=== PATIENT | female | born 1950 | race Caucasian/White ===

== ENCOUNTER 2016-05-12 09:34 | Observation (INO) | payer OTHER, BC ==
[2016-05-12 09:41] VITALS: BMI 36.1
[2016-05-12] MEDS ORDERED: SODIUM CHLORIDE 500 ML IV STA (10:14)
[2016-05-12 10:35] LABS: BASOPHIL 0.4 % (0-2.0); EOSINOPHIL 2.3 % (0-4.5); MCHC 34.4 g/dl (32.0-36.0); MEAN CELL VOLUME 93.1 fl (80-96); MEAN PLT VOLUME 10.3 fl (7.5-11.1); PLATELET COUNT 138 K/MM3 (134-434); RDW 12.9 % (11.6-15.6); WHITE BLOOD COUNT 10.4 K/mm3 (4.0-10.0)
--- NOTE | 2016-05-12 10:35 | PDOC ---
History of Present Illness - General Chief Complaint: Lightheaded Stated Complaint: WEAKNESS Time Seen by Provider: 05/12/16 09:49 History Source: Patient, Family - History of Present Illness Timing/Duration: other (this am) Associated Symptoms: reports: cough, malaise, nausea/vomiting. denies: chest pain, diaphoresis, fever/chills, headaches, shortness of breath, syncope Past History - Past Medical History Allergies/Adverse Reactions: Allergies Allergy/AdvReac Type Severity Reaction Status Date / Time No Known Allergies Allergy Verified 05/12/16 09:41 Home Medications: Ambulatory Orders Aspirin [ASA] 81 mg PO DAILY 01/15/13 Atorvastatin Ca [Lipitor -] 40 mg PO HS 01/15/13 Clopidogrel Bisulfate [Plavix] 75 mg PO DAILY 01/15/13 Enalapril Maleate [Vasotec -] 10 mg PO DAILY 01/15/13 Furosemide [Lasix -] 40 mg PO DAILY 01/15/13 Isosorbide Mononitrate [Imdur] 60 mg PO DAILY 01/15/13 Meloxicam [Mobic] 7.5 mg PO DAILY 01/15/13 Metoprolol Tartrate [Lopressor] 100 mg PO TID 01/15/13 Cardiac Disorders: Yes ([place] X 2) CVA: Yes HTN: Yes Hypercholesterolemia: Yes - Surgical History Cardiac Surgery: Yes ([facility]) - Psycho/Social/Smoking Cessation Hx Anxiety: No Suicidal Ideation: No Smoking Status: No Smoking History: Never smoked Number of Cigarettes Smoked Daily: 0 Hx Alcohol Use: No Drug/Substance Use Hx: No Substance Use Type: None Review of Systems - Review of Systems Constitutional: Yes: Malaise. No: Chills, Fever HEENTM: No: Blurred Vision Respiratory: Yes: Cough. No: Shortness of Breath Cardiac (ROS): No: Chest Pain, Palpitations, Syncope ABD/GI: Yes: Nausea. No: Vomiting Neurological: Yes: Dizziness. No: Headache *Physical Exam - Vital Signs Last Vital Signs Temp Pulse Resp BP Pulse Ox 97.7 F 59 L 18 120/58 99 05/12/16 09:35 05/12/16 10:22 05/12/16 10:22 05/12/16 10:22 05/12/16 10:22 - Physical Exam General Appearance: Yes: Appropriately Dressed. No: Apparent Distress HEENT: positive: Normal Voice Neck: positive: Supple Respiratory/Chest: positive: Lungs Clear, Normal Breath Sounds. negative: Respiratory Distress Cardiovascular: positive: Regular Rate, S1, S2 Integumentary: positive: Dry, Warm Neurologic: positive: Fully Oriented, Alert, Normal Mood/Affect ED Treatment Course - LABORATORY CBC & Chemistry Diagram: 05/12/16 10:15 05/12/16 10:15 - RADIOLOGY Radiology Studies Ordered: Category Date Time Status HEAD CT WITHOUT CONTRAST [CT] Stat CT Scan 05/12/16 10:18 Ordered CHEST X-RAY PORTABLE* [RAD] Stat Radiology 05/12/16 09:53 Ordered Medical Decision Making - Medical Decision Making 05/12/16 10:23 66 yo F, COPD, TIA, CAD, [place], CABG, status post left endarterectomy with known 90 % occlusion to right carotid as per daughter, presents with dizziness and near syncope this a.m. As per daughter, this am patient complained of the room spinning and nausea and appeared to be about to pass out but never lost consciousness as per family. Pt denies headache, visual changes, slurred speech , focal weakness, chest pain or shortness of breath. Pt reports feeling better now. States she currently has a URI, consistent with a cough and runny nose and that prior to sxs this am, pt took 2 different cough medications, a leftover antibiotic and all her a.m. medications and suspects that her symptoms could be from medications. See exam Dizziness/near syncope Possible viral labyrinthitis given recent uri, ? meds ingestion, unlikely TIA or cardiac -CTH -ekg -labs -IVF -reassess and discuss dispo w/ PMD 05/12/16 10:36 05/12/16 12:17 05/12/16 12:17 +influenza on labs. IVF and tamiflu in progress. Pt evaluated by Dr Tovar who noted new TWI in lateral leads. Trop neg. Pt reports no CP or SOB and is stable in ED. Case d/w Dr Kay who wants pt admitted to hospitalist *DC/Admit/Observation/Transfer Diagnosis at time of Disposition: Influenza, Pre-syncope - Discharge Dispostion Condition at time of disposition: Fair Admit: Yes
--- NOTE | 2016-05-12 10:58 | EKG ---
Test Reason : Blood Pressure : / mmHG Vent. Rate : 053 BPM Atrial Rate : 053 BPM P-R Int : 194 ms QRS Dur : 090 ms QT Int : 504 ms P-R-T Axes : 054 001 112 degrees QTc Int : 472 ms SINUS BRADYCARDIA T WAVE ABNORMALITY, CONSIDER LATERAL ISCHEMIA PROLONGED QT ABNORMAL ECG WHEN COMPARED WITH ECG OF 05-APR-2008 04:16, INVERTED T WAVES HAVE REPLACED NONSPECIFIC T WAVE ABNORMALITY IN LATERAL LEADS Confirmed by BERNARD REYES, DEEDEE ([id number]) on 05/12/2016 10:58:23 AM Referred By: Confirmed By:DEEDEE WAGNER MD
[2016-05-12 11:06] LABS: ALBUMIN 3.5 g/dl (3.4-5.0); ANION GAP 8 (8-16); BILIRUBIN,TOTAL 0.6 mg/dL (0.2-1.0); CALCIUM 8.2 mg/dL (8.5-10.1); CO2 25 mmol/L (21-32); CREATININE 1.1 mg/dL (0.55-1.02); GLUCOSE,RANDOM 91 mg/dL (74-106); SGOT/AST 25 U/L (15-37); SGPT/ALT 29 U/L (12-78); TOT PROT 6.9 g/dl (6.4-8.2)
[2016-05-12 11:08] LABS: ALK PHOS 97 U/L (45-117); TROPONIN I < 0.02 ng/ml (0.00-0.05)
[2016-05-12] MEDS ORDERED: OSELTAMIVIR PHOSPHATE 75 MG CAPSULE PO ONE (11:12)
--- NOTE | 2016-05-12 11:20 | CON.CARD ---
Consult Consult Specialty:: Cardiology - History of Present Illness History of Present Illness: 66 yo F, COPD, TIA, CAD, [place], CABG, status post left endarterectomy with known 90 % occlusion to right carotid as per daughter, presents with dizziness and near syncope this a.m. As per daughter, this am patient complained of the room spinning and nausea and appeared to be about to pass out but never lost consciousness as per family. Pt denies headache, visual changes, slurred speech , focal weakness, chest pain or shortness of breath. Pt reports feeling better now. States she currently has a URI, consistent with a cough and runny nose and that prior to sxs this am, pt took 2 different cough medications, a leftover antibiotic and all her a.m. medications and suspects that her symptoms could be from medications. PMH CABG [address] Devin Aguiar ASHD COPD HHD HTN Hyperlipidemia TIA - History Source History Provided By: Patient, Medical Record - Past Medical History Cardio/Vascular: Yes: CAD, HTN, Hyperlipdemia - Alcohol/Substance Use Hx Alcohol Use: No - Smoking History Smoking history: Never smoked Aproximately how many cigarettes per day: 0 Home Medications - Allergies Allergies/Adverse Reactions: Allergies Allergy/AdvReac Type Severity Reaction Status Date / Time No Known Allergies Allergy Verified 05/12/16 09:41 - Home Medications Home Medications: Ambulatory Orders Aspirin [ASA] 81 mg PO DAILY 01/15/13 Atorvastatin Ca [Lipitor -] 40 mg PO HS 01/15/13 Clopidogrel Bisulfate [Plavix] 75 mg PO DAILY 01/15/13 Enalapril Maleate [Vasotec -] 10 mg PO DAILY 01/15/13 Furosemide [Lasix -] 40 mg PO DAILY 01/15/13 Isosorbide Mononitrate [Imdur] 60 mg PO DAILY 01/15/13 Meloxicam [Mobic] 7.5 mg PO DAILY 01/15/13 Metoprolol Tartrate [Lopressor] 100 mg PO TID 01/15/13 Review of Systems - Review of Systems Constitutional: reports: No Symptoms Eyes: reports: No Symptoms HENT: reports: No Symptoms Neck: reports: No Symptoms Cardiovascular: reports: No Symptoms Gastrointestinal: reports: No Symptoms Genitourinary: reports: No Symptoms Breasts: reports: No Symptoms Reported Musculoskeletal: reports: No Symptoms Integumentary: reports: No Symptoms Neurological: reports: No Symptoms Endocrine: reports: No Symptoms Hematology/Lymphatic: reports: No Symptoms Psychiatric: reports: No Symptoms Vital Signs: Vital Signs Temperature 97.7 F 05/12/16 09:35 Pulse Rate 59 L 05/12/16 10:22 Respiratory Rate 18 05/12/16 10:22 Blood Pressure 120/58 05/12/16 10:22 O2 Sat by Pulse Oximetry (%) 98 05/12/16 10:23 Constitutional: Yes: Well Nourished, No Distress, Calm Eyes: Yes: WNL, Conjunctiva Clear, EOM Intact HENT: Yes: WNL, Atraumatic, Normocephalic Neck: Yes: WNL, Supple, Trachea Midline Respiratory: Yes: WNL, Regular, CTA Bilaterally Gastrointestinal: Yes: WNL, Normal Bowel Sounds Renal/: Yes: WNL Cardiovascular: Yes: WNL, Regular Rate and Rhythm Musculoskeletal: Yes: WNL Extremities: Yes: WNL Integumentary: Yes: WNL Neurological: Yes: WNL, Alert, Oriented ...Motor Strength: WNL Psychiatric: Yes: WNL, Alert, Oriented - Other Data Labs, Other Data: CBC, BMP 05/12/16 10:15 Laboratory Tests 05/12/16 05/12/16 10:15 10:15 WBC 10.4 H RBC 3.91 Hgb 12.5 Hct 36.4 MCV 93.1 MCHC 34.4 RDW 12.9 Plt Count 138 MPV 10.3 Neutrophils % 69.0 Lymphocytes % 19.2 Monocytes % 9.1 Eosinophils % 2.3 Basophils % 0.4 Sodium 137 Potassium 4.0 Chloride 104 Carbon Dioxide 25 Anion Gap 8 BUN 23 H Creatinine 1.1 H Creat Clearance w eGFR 49.69 Random Glucose 91 Calcium 8.2 L Total Bilirubin 0.6 AST 25 ALT 29 Alkaline Phosphatase 97 Creatine Kinase 109 Troponin I < 0.02 Total Protein 6.9 Albumin 3.5 Imaging - Results Chest X-ray: Image Reviewed (cm no I/E) EKG: Image Reviewed (sr rep abn lateral ischemia?) Assessment/Plan ashd s/p cabg pad s/p cea htn hld near syncope influenza plan cardiac alaniz stable monitor BP for signs of hypotension adjust bp meds as needed lipid profile and ECHO
[2016-05-12] MEDS ORDERED: OSELTAMIVIR PHOSPHATE 75 MG CAPSULE ONE (11:38)
[2016-05-12] MEDS ORDERED: SODIUM CHLORIDE 1,000 ML IV SCH ×2 (14:15→14:24)
[2016-05-12] MEDS ORDERED: ALBUTEROL SO4 2.5/IPRATROPIUM 0.5 INH SOL 3 ML VIAL.NEB. NEB PRN ×2 (14:18→14:29)
[2016-05-12] MEDS ORDERED: ALBUTEROL SO4 0.083% IH SOL 2.5 MG/3 ML VIAL.NEB. NEB PRN (14:18)
--- NOTE | 2016-05-12 14:22 | PN ---
Teaching Attending Note Name of Resident: Hero Mayfield ATTENDING PHYSICIAN STATEMENT I saw and evaluated the patient. I reviewed the resident's note and discussed the case with the resident. I agree with the resident's findings and plan as documented. SUBJECTIVE: This is a 66-year-old woman with a history of CAD, stents, CABG, HTN , hyperlipidemia, carotid stenosis, left carotid endarterectomy, COPD and TIA who comes to the ER today after two episodes of feeling as if she were going to pass out. She has had nasal congestion and a cough for 5 days. OBJECTIVE: Vital Signs Period Temp Pulse Resp BP Sys/Stephens Pulse Ox Last 24 Hr 97.7 F 57-60 18-20 104-130/45-60 98-99 HEART: S1 S2, RRR, (+) 2/6 systolic murmur LUNGS: Scattered crackles and wheezes ABDOMEN: Obese, soft, non-tender, non-distended, normal BS EXTREMITIES: No edema Medication Instructions Recorded Aspirin [ASA] 81 mg PO DAILY 01/15/13 Atorvastatin Ca [Lipitor -] 40 mg PO HS 01/15/13 Clopidogrel Bisulfate [Plavix] 75 mg PO DAILY 01/15/13 Enalapril Maleate [Vasotec -] 10 mg PO DAILY 01/15/13 Furosemide [Lasix -] 40 mg PO DAILY 01/15/13 Isosorbide Mononitrate [Imdur] 60 mg PO DAILY 01/15/13 Meloxicam [Mobic] 7.5 mg PO DAILY 01/15/13 Metoprolol Tartrate [Lopressor] 100 mg PO TID 01/15/13 ASSESSMENT AND PLAN: 1. Near syncope likely secondary to dehydration from influenza A and poor oral intake - IV fluid - Monitor BUN, creatinine - Tamiflu started in ER 2. Abnormal EKG - Monitor on telemetry - Serial troponins - Echocardiogram - Cardiology consult appreciated 3. CAD, history of stents, CABG - Continue aspirin, Plavix, Lopressor, Imdur, Lipitor 4. Hypertension - Continue Lopressor, Vasotec 5. Hyperlipidemia - Continue Lipitor 6. Bilateral carotid stenosis, history of TIA and left carotid endarterectomy - Continue aspirin 7. COPD - Stable - DuoNeb as needed
--- NOTE | 2016-05-12 14:29 | HP ---
CHIEF COMPLAINT: dizziness PCP: Dr. Patrick Kay HISTORY OF PRESENT ILLNESS: 66 y/o F with PMH of COPD, TIA, CAD, [place] X 2, CABG, s/p left endarterectomy with known 90% occlusion to right carotid as per daughter, presents with dizziness and near syncope this a.m. Pt woke up this morning, took her morning medcations , but did not eat or drink because she hasn't been feeling well since Tuesday. She has felt sick with a runny nose, cough, sore throat since Tuesday. Yesterday night she had fevers, chills overnight. This morning pt was sitting down and began slouching as per daughter. Pt states at this time she felt as though sounds became distant and she became dizzy and nasueous. She denies fall , LOC, or vomiting. She states the episode last about 10 minutes and began feeling better when her daughter placed a cold towel on her face. As per breezy the pt was incoherent as she was recovering during this episode. She states she had an episode similar to this 4 months ago. She currently feels like she does not have dizziness but still has runny nose and sore throat. She states she has sick contacts at home as her whole family has been sick recently. She denies recent travel history, denies CP, SOB, palpitations, pain or numbness in arms, ringing in ears, diplopia, abd pain, swelling, or any GI or symptoms. Did not get flu shot this year. ER course was notable for: (1) Rapid flu, EKG, Head CT (2) CXR, ECHO (3) Recent Travel:denies PAST MEDICAL HISTORY: COPD, TIA, CAD, [place] X 2, CABG PAST SURGICAL HISTORY:left endarterectomy, multiple stent placement Social History: Smoking: quit approximately 15 years ago. Smoked 1ppd for approx 30 years Drugs: denies Family History: Allergies No Known Allergies Allergy (Verified 05/12/16 09:41) HOME MEDICATIONS: Medication Instructions Recorded Aspirin [ASA] 81 mg PO DAILY 01/15/13 Atorvastatin Ca [Lipitor -] 40 mg PO HS 01/15/13 Clopidogrel Bisulfate [Plavix] 75 mg PO DAILY 01/15/13 Enalapril Maleate [Vasotec -] 10 mg PO DAILY 01/15/13 Furosemide [Lasix -] 40 mg PO DAILY 01/15/13 Isosorbide Mononitrate [Imdur] 60 mg PO DAILY 01/15/13 Meloxicam [Mobic] 7.5 mg PO DAILY 01/15/13 Metoprolol Tartrate [Lopressor] 100 mg PO TID 01/15/13 REVIEW OF SYSTEMS CONSTITUTIONAL: Absent: fever, chills, diaphoresis, generalized weakness, malaise, loss of appetite, weight change HEENT: Nasal congestion, throat pain Absent: throat swelling, difficulty swallowing, mouth swelling, ear pain, eye pain, visual changes CARDIOVASCULAR: Absent: chest pain, syncope, palpitations, irregular heart rate, lightheadedness , peripheral edema RESPIRATORY: Absent: cough, shortness of breath, dyspnea with exertion, orthopnea, wheezing, stridor, hemoptysis GASTROINTESTINAL: Absent: abdominal pain, abdominal distension, nausea, vomiting, diarrhea, constipation, melena, hematochezia GENITOURINARY: Absent: dysuria, frequency, urgency, hesitancy, hematuria, flank pain, genital pain MUSCULOSKELETAL: Absent: myalgia, arthralgia, joint swelling, back pain, neck pain SKIN: Absent: rash, itching, pallor HEMATOLOGIC/IMMUNOLOGIC: Absent: easy bleeding, easy bruising, lymphadenopathy, frequent infections ENDOCRINE: Absent: unexplained weight gain, unexplained weight loss, heat intolerance, cold intolerance NEUROLOGIC: dizziness, mental status change Absent: headache, focal weakness or paresthesias, dizziness, unsteady gait, seizure, mental status changes, bladder or bowel incontinence PSYCHIATRIC: Absent: anxiety, depression, suicidal or homicidal ideation, hallucinations. PHYSICAL EXAMINATION GENERAL: Awake, alert, and fully oriented, in no acute distress. HEAD: Normal with no signs of trauma. EYES: Pupils equal, round and reactive to light, extraocular movements intact, sclera anicteric, conjunctiva clear. No lid lag. EARS, NOSE, THROAT: Ears normal, nares patent, oropharynx clear without exudates. Moist mucous membranes. NECK: Normal range of motion LUNGS: B/L wheezing, crackles R upper lung field HEART: Regular rate and rhythm, normal S1 and S2, +systolic murmur ABDOMEN: Soft, nontender, not distended, normoactive bowel sounds, no guarding, no rebound, no masses. No hepatomegaly or splenomegaly. MUSCULOSKELETAL: Normal range of motion at all joints. No bony deformities or tenderness. No CVA tenderness. LOWER EXTREMITIES: 2+ pulses, warm, well-perfused. No calf tenderness. No peripheral edema. NEUROLOGICAL: Normal speech. Gait not observed. PSYCHIATRIC: Cooperative. Good eye contact. Appropriate mood and affect. SKIN: Warm, dry, normal turgor, no rashes or lesions noted. CBCD WBC 10.4 K/mm3 (4.0-10.0) H 05/12/16 10:15 RBC 3.91 M/mm3 (3.60-5.2) 05/12/16 10:15 Hgb 12.5 GM/dL (10.7-15.3) 05/12/16 10:15 Hct 36.4 % (32.4-45.2) 05/12/16 10:15 MCV 93.1 fl (80-96) 05/12/16 10:15 MCHC 34.4 g/dl (32.0-36.0) 05/12/16 10:15 RDW 12.9 % (11.6-15.6) 05/12/16 10:15 Plt Count 138 K/MM3 (134-434) 05/12/16 10:15 MPV 10.3 fl (7.5-11.1) 05/12/16 10:15 CMP Sodium 137 mmol/L (136-145) 05/12/16 10:15 Potassium 4.0 mmol/L (3.5-5.1) 05/12/16 10:15 Chloride 104 mmol/L (98-107) 05/12/16 10:15 Carbon Dioxide 25 mmol/L (21-32) 05/12/16 10:15 Anion Gap 8 (8-16) 05/12/16 10:15 BUN 23 mg/dL (7-18) H 05/12/16 10:15 Creatinine 1.1 mg/dL (0.55-1.02) H 05/12/16 10:15 Creat Clearance w eGFR 49.69 (>60) 05/12/16 10:15 Random Glucose 91 mg/dL (74-106) 05/12/16 10:15 Calcium 8.2 mg/dL (8.5-10.1) L 05/12/16 10:15 Total Bilirubin 0.6 mg/dL (0.2-1.0) 05/12/16 10:15 AST 25 U/L (15-37) 05/12/16 10:15 ALT 29 U/L (12-78) 05/12/16 10:15 Alkaline Phosphatase 97 U/L (45-117) 05/12/16 10:15 Total Protein 6.9 g/dl (6.4-8.2) 05/12/16 10:15 Albumin 3.5 g/dl (3.4-5.0) 05/12/16 10:15 CARDIAC ENZYMES Creatine Kinase 109 IU/L (26-192) 05/12/16 10:15 Troponin I < 0.02 ng/ml (0.00-0.05) 05/12/16 10:15 Microbiology 05/12/16 10:00 Nasopharyngeal Swab Influenza Types A,B Antigen (LEONARDA) - Final 05/12/16 10:00 Nasopharyngeal Swab - Final ASSESSMENT/PLAN: 66 y/o F with PMH of COPD, TIA, CAD, [place] X 2, CABG presents to ER with an episode of dizziness and near syncope this AM. - Dizziness secondary to dehydration and flu -Influenza A+, did not get flu shot this year, did not drink or eat this AM -Tamiflu 75 mg po bid -NS @ 42 ml/hr - Abnormal EKG -Cardiology on board -Cardiac alaniz, pt is stable -no chest pain, arm numbness or pain -initial trop is negative -f/u trops -f/u echo -f/u lipid profile - COPD exacerbation in setting of flu -Duo-nebs qid connie -alb neb q4h prn - KANDICE -Cr 1.1, baseline unknown -NS @ 42 ml/hr -will monitor -Lasix held in light of KANDICE - HTN -c/w metoprolol 100 mg tid, enalapril 10 mg po qd -monitor BP - CAD -c/w imdur, asa, plavix - HLD -c/w atorvastatin - DVT -Heparin 5000 units sq tid - FEN -gentle fluid hydration with NS @ 42 ml/hr -Sodium/Chol/Fat controlled diet - Dispo: Monitor on floors Problem List - Problem (1) Influenza Code(s): J11.1 - FLU DUE TO UNIDENTIFIED INFLUENZA VIRUS W OTH RESP MANIFEST (2) Near syncope Code(s): R55 - SYNCOPE AND COLLAPSE (3) HTN (hypertension) Code(s): I10 - ESSENTIAL (PRIMARY) HYPERTENSION (4) HLD (hyperlipidemia) Code(s): E78.5 - HYPERLIPIDEMIA, UNSPECIFIED (5) CAD (coronary artery disease) Code(s): I25.10 - ATHSCL HEART DISEASE OF [place] CORONARY ARTERY W/O ANG PCTRS (6) KANDICE (acute kidney injury) Code(s): N17.9 - ACUTE KIDNEY FAILURE, UNSPECIFIED (7) Carotid stenosis Code(s): I65.29 - OCCLUSION AND STENOSIS OF UNSPECIFIED CAROTID ARTERY (8) History of AK (myocardial infarction) Code(s): I25.2 - OLD MYOCARDIAL INFARCTION Visit type - Emergency Visit Emergency Visit: Yes ED Registration Date: 05/12/16 Care time: The patient presented to the Emergency Department on the above date and was hospitalized for further evaluation of their emergent condition. - New Patient This patient is new to me today: Yes Date on this admission: 05/12/16 - Critical Care Critical Care patient: No
[2016-05-12 17:34] LABS: URINE APPEARANCE CLEAR; URINE BILIRUBIN NEGATIVE (NEGATIVE); URINE BLOOD NEGATIVE (NEGATIVE); URINE COLOR LTYELLOW; URINE GLUCOSE (UA) NEGATIVE (NEGATIVE); URINE KETONE NEGATIVE (NEGATIVE); URINE LEUK ESTERASE NEGATIVE (NEGATIVE); URINE NITRITE NEGATIVE (NEGATIVE); URINE PROTEIN NEGATIVE (NEGATIVE); URINE UROBILINOGEN NEGATIVE E.U./dl (0.2-1.0)
[2016-05-12] MEDS ORDERED: ALBUTEROL SO4 2.5/IPRATROPIUM 0.5 INH SOL 3 ML VIAL.NEB. NEB SCH (18:00)
[2016-05-12] MEDS ORDERED: guaiFENesin 200 MG/10 ML 10 ML UNIT-DOSE CUPS PO PRN (18:02)
[2016-05-12 20:50] LABS: CHOLESTEROL 149 mg/dL (50-200)
[2016-05-12 20:51] LABS: TROPONIN I < 0.02 ng/ml (0.00-0.05)
[2016-05-12] MEDS ORDERED: ATORVASTATIN CA 40 MG TABLET (FP) PO SCH (22:00)
[2016-05-12] MEDS: METOPROLOL TARTRATE 50 MG TABLET (FP) PO SCH (22:33)
[2016-05-12] MEDS: OSELTAMIVIR PHOSPHATE 75 MG CAPSULE PO SCH (22:33)
[2016-05-13 02:16] LABS: TROPONIN I < 0.02 ng/ml (0.00-0.05)
[2016-05-13 02:55] LABS: LDL CHOLESTEROL (ONLY SJRH) 92 mg/dL (5-100)
[2016-05-13] MEDS: METOPROLOL TARTRATE 50 MG TABLET (FP) PO SCH ×2 (06:35→14:06)
[2016-05-13 08:09] LABS: MCH 32.1 pg (25.7-33.7); MCHC 34.2 g/dl (32.0-36.0); MEAN PLT VOLUME 9.8 fl (7.5-11.1); PLATELET COUNT 104 K/MM3 (134-434); RDW 13.2 % (11.6-15.6)
[2016-05-13 08:54] LABS: CALCIUM 8.2 mg/dL (8.5-10.1)
[2016-05-13] MEDS ORDERED: PT OWN MED DRAWER 7, Y5N ONE (09:27)
[2016-05-13] MEDS ORDERED: ASPIRIN 81 MG CHEWABLE TABLETS PO SCH (10:00)
[2016-05-13] MEDS ORDERED: FUROSEMIDE 40 MG TABLET (FP) PO SCH (10:00)
[2016-05-13] MEDS ORDERED: PATIENT'S OWN MEDICATION (NON-FORMULARY) (Meloxicam 7.5 MG) PO SCH (10:00)
[2016-05-13] MEDS ORDERED: CLOPIDOGREL BISULFATE 75 MG TABLET (FP) PO SCH (10:00)
[2016-05-13] MEDS ORDERED: ENALAPRIL MALEATE 10 MG TABLET (FP) PO SCH (10:00)
[2016-05-13] MEDS ORDERED: ISOSORBIDE MONONITRATE 60 MG TAB.SR.24H (FP) PO SCH (10:00)
[2016-05-13] MEDS: OSELTAMIVIR PHOSPHATE 75 MG CAPSULE PO SCH (10:02)
--- NOTE | 2016-05-13 10:22 | PN ---
Progress Note, Physician Chief Complaint: Pt A&Ox3; still with dry cough; otherwise feels well. History of Present Illness: 66 yo woman with PMHx COPD, TIA, CAD, [place], CABG, status post left endarterectomy with known 90% occlusion to right carotid as per daughter, presents with dizziness and near syncope this a.m. As per daughter, this am patient complained of the room spinning and nausea and appeared to be about to pass out but never lost consciousness as per family. Pt denies headache, visual changes, slurred speech, focal weakness, chest pain or shortness of breath. Pt reports feeling better now. States she currently has a URI, consistent with a cough and runny nose and that prior to sxs this am, pt took 2 different cough medications, a leftover antibiotic and all her a.m. medications and suspects that her symptoms could be from medications. PMH CABG [address] Devin HANSON COPD HHD HTN Hyperlipidemia TIA - Current Medication List Current Medications: Active Medications Albuterol Sulfate (Ventolin 0.083% Nebulizer Soln -) 1 amp NEB Q6H PRN PRN Reason: SHORT OF BREATH/WHEEZING Albuterol/Ipratropium (Duoneb -) 1 amp NEB Q6H PRN PRN Reason: SHORTNESS OF BREATH Aspirin (Asa -) 81 mg PO DAILY [facility] Last Admin: 05/13/16 10:02 Dose: 81 mg Atorvastatin Calcium (Lipitor -) 40 mg PO HS [facility] Last Admin: 05/12/16 22:33 Dose: 40 mg Clopidogrel Bisulfate (Plavix -) 75 mg PO DAILY [facility] Last Admin: 05/13/16 10:02 Dose: 75 mg Enalapril Maleate (Vasotec -) 10 mg PO DAILY [facility] Last Admin: 05/13/16 10:02 Dose: 10 mg Guaifenesin (Robitussin -) 10 ml PO Q4H PRN PRN Reason: COUGH Last Admin: 05/12/16 18:20 Dose: 10 ml Sodium Chloride (Normal Saline -) 1,000 mls @ 42 mls/hr IV ASDIR [facility] Last Admin: 05/12/16 14:36 Dose: 42 mls/hr Isosorbide Mononitrate (Imdur -) 60 mg PO DAILY [facility] Last Admin: 05/13/16 10:02 Dose: 60 mg Metoprolol Tartrate (Lopressor -) 100 mg PO TID [facility] Last Admin: 05/13/16 06:35 Dose: 100 mg Oseltamivir Phosphate (Tamiflu -) 75 mg PO BID [facility] Stop: 05/17/16 21:59 Last Admin: 05/13/16 10:02 Dose: 75 mg - Objective Vital Signs: Vital Signs Temperature 97.9 F 05/13/16 06:00 Pulse Rate 55 L 05/13/16 06:00 Respiratory Rate 20 05/13/16 06:00 Blood Pressure 166/67 05/13/16 06:00 O2 Sat by Pulse Oximetry (%) 99 05/13/16 06:00 Constitutional: Yes: Calm Eyes: Yes: WNL HENT: Yes: WNL Neck: Yes: WNL Cardiovascular: Yes: WNL Respiratory: Yes: Regular Gastrointestinal: Yes: Soft ...Rectal Exam: Yes: Deferred Genitourinary: No: Anuria Breast(s): Yes: WNL Musculoskeletal: Yes: Muscle Weakness Extremities: Yes: Cool Edema: No Peripheral Pulses WNL: Yes Integumentary: Yes: WNL Neurological: Yes: WNL Psychiatric: Yes: WNL Labs: CBC, BMP 05/13/16 06:10 05/13/16 06:10 - ....Imaging Ultrasound: Report Reviewed (ECHO: normal LVEF; moderate ; mild AR; mild LVH) Problem List - Problems (1) CAD (coronary artery disease) Assessment/Plan: increase daily exercise as outpt. Dietary changes; weight reduction. Continue present medications, except increase statin dose. Code(s): I25.10 - ATHSCL HEART DISEASE OF [place] CORONARY ARTERY W/O ANG PCTRS (2) Carotid stenosis Code(s): I65.29 - OCCLUSION AND STENOSIS OF UNSPECIFIED CAROTID ARTERY (3) HLD (hyperlipidemia) Assessment/Plan: Increase statin dose; keep LDL cholesterol < 70 mg/dL. Code(s): E78.5 - HYPERLIPIDEMIA, UNSPECIFIED (4) HTN (hypertension) Code(s): I10 - ESSENTIAL (PRIMARY) HYPERTENSION (5) Influenza Code(s): J11.1 - FLU DUE TO UNIDENTIFIED INFLUENZA VIRUS W OTH RESP MANIFEST (6) Near syncope Code(s): R55 - SYNCOPE AND COLLAPSE (7) Diastolic CHF Code(s): I50.30 - UNSPECIFIED DIASTOLIC (CONGESTIVE) HEART FAILURE (8) Aortic stenosis Assessment/Plan: ECHO: normal LVEF; moderate ; mild AR; mild LVH; normal LV size. Continue present medications; f/u with cardiology as outpatient. Code(s): I35.0 - NONRHEUMATIC AORTIC (VALVE) STENOSIS
--- NOTE | 2016-05-13 12:39 | PN ---
Teaching Attending Note Name of Resident: Hero Mayfield ATTENDING PHYSICIAN STATEMENT I saw and evaluated the patient. I reviewed the resident's note and discussed the case with the resident. I agree with the resident's findings and plan as documented. SUBJECTIVE:continues to have non-productive cough but has improved. no repeated episodes of syncope or near syncope or LOC. ambulated to bathroom without difficulty. denies CP, SOB,fever, chills, N/V/C/D, blurred vision or palpitations OBJECTIVE: Last Vital Signs Temp Pulse Resp BP Pulse Ox 98.0 F 57 L 18 132/47 99 05/13/16 10:00 05/13/16 10:00 05/13/16 10:00 05/13/16 10:00 05/13/16 09:01 General NAD CV S1 S2 RRR no murmur/rub/gallop no chest wall tenderness, no carotid bruit ASSESSMENT AND PLAN: 66yo F with PMH COPD, TIA, CAD s/p 2 stents and CABG, L carotidendarectomy presented to the ER and was admitted for further evaluation of their emergent care 1. Near-syncope- likely due to dehydration vs . tele observation. no events on tele monitor. cardiac markers neg x3. Echo with no WMA. moderate noted. do not have old reports to compare if is new or old. cardio on board. on Tamiflu day2, droplet precautions 2. EKG changes- noted by cardiology and not of concern. assume this is old finding 3. KANDICE- given gentle hydration. now resolved. 4. COPD- currently stable. no signs of acute exacerbation. not on maintenance medication 5. CAD- no signs of acs. cont asa/plavix/statin 6. HTN- stable. cont imdur and metoprolol and Acei 7. d/c home. will send home on tamiflu to complete 5 day course.
[2016-05-13 14:25] VITALS: BP 128/53; PULSE 87; TEMP 98.3
--- NOTE | 2016-05-13 17:09 | DS ---
Physical Exam: SUBJECTIVE: Patient seen and examined at bedside. Feels better today. Still has some cough but denies any dizziness, light headedness, CP, palpitations, chest pressure. OBJECTIVE: Vital Signs Temperature 98.3 F 05/13/16 14:21 Pulse Rate 87 05/13/16 14:21 Respiratory Rate 18 05/13/16 14:21 Blood Pressure 128/53 05/13/16 14:21 O2 Sat by Pulse Oximetry (%) 99 05/13/16 09:01 PHYSICAL EXAM GENERAL: The patient is awake, alert, and fully oriented, in no acute distress. HEAD: Normal with no signs of trauma. EYES: PERRL, extraocular movements intact, sclera anicteric, conjunctiva clear. ENT: Ears normal, nares patent, oropharynx clear without exudates, moist mucous membranes. NECK: Trachea midline, full range of motion, supple. LUNGS: B/L wheezing, improved compared to yesterday HEART: Regular rate and rhythm, S1, S2 without murmur, rub or gallop. ABDOMEN: Soft, nontender, nondistended, normoactive bowel sounds, no guarding, no rebound, no hepatosplenomegaly, no masses. EXTREMITIES: 2+ pulses, warm, well-perfused, no edema. NEUROLOGICAL: Cranial nerves II through XII grossly intact. Normal speech, gait not observed. PSYCH: Normal mood, normal affect. SKIN: Warm, dry, normal turgor, no rashes or lesions noted. LABS Laboratory Results - last 24 hr 05/12/16 05/13/16 05/13/16 19:40 01:35 01:35 WBC RBC Hgb Hct MCV MCHC RDW Plt Count MPV Sodium Potassium Chloride Carbon Dioxide Anion Gap BUN Creatinine Random Glucose Calcium Creatine Kinase 88 Troponin I < 0.02 Cancelled < 0.02 Triglycerides 213 H Cholesterol 149 Total LDL Cholesterol 92 HDL Cholesterol 43 05/13/16 05/13/16 06:10 06:10 WBC 7.0 D RBC 3.44 L Hgb 11.0 D Hct 32.3 L MCV 94.0 MCHC 34.2 RDW 13.2 Plt Count 104 L D MPV 9.8 Sodium 140 Potassium 4.2 Chloride 103 Carbon Dioxide 26 Anion Gap 11 BUN 21 H Creatinine 1.0 Random Glucose 96 Calcium 8.2 L Creatine Kinase Troponin I Triglycerides Cholesterol Total LDL Cholesterol HDL Cholesterol Microbiology 05/12/16 10:00 Nasopharyngeal Swab Influenza Types A,B Antigen (LEONARDA) - Final 05/12/16 10:00 Nasopharyngeal Swab - Final HOSPITAL COURSE: Date of Admission:05/12/16 Date of Discharge: 05/13/16 66 y/o F with PMH of COPD, TIA, CAD, IA X 2, CABG, s/p left endarterectomy with known 90% occlusion to right carotid as per daughter, presents with dizziness and near syncope a.m. of coming to ER. Pt woke up this morning, took her morning medcations, but did not eat or drink because she hasn't been feeling well since Tuesday. She has felt sick with a runny nose, cough, sore throat since Tuesday. Yesterday night she had fevers, chills overnight. This morning pt was sitting down and began slouching as per daughter. Pt states at this time she felt as though sounds became distant and she became dizzy and nasueous. She denies fall, LOC, or vomiting. She states the episode last about 10 minutes and began feeling better when her daughter placed a cold towel on her face. As per daughter the pt was incoherent as she was recovering during this episode. She states she had an episode similar to this 4 months ago. She currently feels like she does not have dizziness but still has runny nose and sore throat. She states she has sick contacts at home as her whole family has been sick recently. She denies recent travel history, denies CP, SOB, palpitations, pain or numbness in arms, ringing in ears, diplopia, abd pain, swelling, or any GI or symptoms. Did not get flu shot this year. Pt was found to have rapid influenza A+. Pt's symptoms were most likely secondary to dehydration from my eating and drinking and taking all her AM meds. Pt was treated with tamiflu bid. Pt also likely had COPD exacerbation as she was wheezing in the setting of flu and was treated with duonebs and albuterol nebs. Pt also had KANDICE with Cr of 1.1 and her lasix was held and she was hydrated with NS @ 42 ml/hr and on repeat labs the next day KANDICE had resolved. She was found to have ST depression in lateral leads in ER but was cleared by cardio. Trops were negative x3, echo was unremarkable except for moderate aortic stenosis, sclerosis, and mod aortic valve thickening. CXR did not show any acute pathology. Pt improved the follow day after admission and was sent home with tamiflu for 3 more days. Advised to avoid contact with others until at least tomorrow (after completion of 2 days of tamiflu). Minutes to complete discharge: 35 Discharge Summary Reason For Visit: INFLUENZA,NEAR SYNCOPE Current Active Problems KANDICE (acute kidney injury) (Acute) CAD (coronary artery disease) (Acute) Carotid stenosis (Acute) HLD (hyperlipidemia) (Acute) HTN (hypertension) (Acute) History of IA (myocardial infarction) (Acute) Influenza (Acute) Near syncope (Acute) - Instructions Diet, Activity, Other Instructions: Complete the antiviral medication until completed, even if your symptoms resolve. FOllow up with your primary care doctor in 1 week Follow up with cardiology this month. Return to the ER if your symptoms worsen. Referrals: Yrn Dong MD [Staff Physician] - Patrick Kay MD [Primary Care Provider] - Disposition: HOME - Home Medications Comprehensive Discharge Medication List: Ambulatory Orders Aspirin [ASA -] 81 mg PO DAILY 01/15/13 Atorvastatin Ca [Lipitor] 40 mg PO HS 01/15/13 Clopidogrel Bisulfate [Plavix -] 75 mg PO DAILY 01/15/13 Enalapril Maleate [Vasotec -] 10 mg PO DAILY 01/15/13 Furosemide [Lasix -] 40 mg PO DAILY 01/15/13 Isosorbide Mononitrate [Imdur] 60 mg PO DAILY 01/15/13 Meloxicam [Mobic -] 7.5 mg PO DAILY 01/15/13 Metoprolol Tartrate [Lopressor -] 100 mg PO TID 01/15/13 Oseltamivir Phosphate [Tamiflu -] 75 mg PO BID #7 capsule 05/13/16 Problem List - Problems (1) Influenza Code(s): J11.1 - FLU DUE TO UNIDENTIFIED INFLUENZA VIRUS W OTH RESP MANIFEST (2) Near syncope Code(s): R55 - SYNCOPE AND COLLAPSE (3) HTN (hypertension) Code(s): I10 - ESSENTIAL (PRIMARY) HYPERTENSION (4) HLD (hyperlipidemia) Code(s): E78.5 - HYPERLIPIDEMIA, UNSPECIFIED (5) CAD (coronary artery disease) Code(s): I25.10 - ATHSCL HEART DISEASE OF [place] CORONARY ARTERY W/O ANG PCTRS (6) KANDICE (acute kidney injury) Code(s): N17.9 - ACUTE KIDNEY FAILURE, UNSPECIFIED (7) Carotid stenosis Code(s): I65.29 - OCCLUSION AND STENOSIS OF UNSPECIFIED CAROTID ARTERY (8) History of IA (myocardial infarction) Code(s): I25.2 - OLD MYOCARDIAL INFARCTION This patient is new to me today: No Emergency Visit: Yes ED Registration Date: 05/12/16 Care time: The patient presented to the Emergency Department on the above date and was hospitalized for further evaluation of their emergent condition. Critical Care patient: No - Discharge Referral Referred to [facility] No
== END 2016-05-13 18:12 | disposition home or self-care (01) ==
LOC: JER 09:34 → INTOOBSV 12:33 → JERBED 12:33 → UNDOADMOB 12:33 → JERBED 14:15 → J4W 20:31
PROVIDERS: ADMIT Internal Medicine; ATTEND Internal Medicine
DX: J11.1 Influenza due to unidentified influenza virus with other respiratory manifestations (principal); E86.0 Dehydration; N17.9 Acute kidney failure, unspecified; J44.1 Chronic obstructive pulmonary disease with (acute) exacerbation; I25.10 Atherosclerotic heart disease of native coronary artery without angina pectoris; I25.2 Old myocardial infarction; I65.21 Occlusion and stenosis of right carotid artery; E78.5 Hyperlipidemia, unspecified; Z95.1 Presence of aortocoronary bypass graft
CPT/HCPCS: 36415; 70450-TC; 71010-TC; 80048; 80053; 80061; 81003; 82550; 83721; 84484; 85025; 85027; 87804; 93005; 93010; 93306-TC; 99285-25; G0378